=== PATIENT | male | born 1950 | race Caucasian/White ===

== ENCOUNTER 2020-04-27 14:30 | Observation (INO) | payer MEDICARE, OTHER ==
--- NOTE | 2020-04-27 15:17 | PDOC.HHP ---
Hospitalist HPI - History of Present Illness Left-sided weakness History of Present Illness: 70-year-old male who has past medical history of hypertension, benign enlargement of prostate, dementia, tobacco abuse disorder, who presented to [facility] emergency room for acute onset of left-sided weakness with numbness on lower and upper extremity. Patient reports that when he got out of bed around 930 this morning the symptoms started. Patient reports that he was normal when he went to bed. Patient was also experiencing some left upper extremity weakness. He did not have any headache or any speech changes. He denies any fall. At [facility] emergency room patient was evaluated with a CT brain which was negative for any acute process. CT angiography was also negative for any blood clot. Routine blood test showed macrocytic anemia and hyponatremia. Subsequently patient was transferred to our hospital for further evaluation. ED Course: Patient was given aspirin at [facility] emergency room. Hospitalist ROS - Review of Systems Constitutional: denies: fever, chills, sweats, weakness, malaise, other Eyes: denies: pain, vision change, conjunctivae inflammation, eyelid inflammation, redness, other ENT: denies: ear pain, ear discharge, nose pain, nose discharge, nose congestion , mouth pain, mouth swelling, throat pain, throat swelling, other Respiratory: denies: cough, dry, shortness of breath, hemoptysis, SOB with excertion, pleuritic pain, sputum, wheezing, other Cardiovascular: denies: chest pain, palpitations, orthopnea, paroxysmal noc. dyspnea, edema, light headedness, other Gastrointestinal: denies: nausea, vomiting, abdominal pain, diarrhea, constipation, melena, hematochezia, other Genitourinary: denies: dysuria, frequency, incontinence, hematuria, retention, other Musculoskeletal: denies: neck pain, shoulder pain, arm pain, back pain, hand pain, leg pain, foot pain, other Skin: denies: rash, lesions, bi, bruising, other Neurological: reports: weakness, numbness. denies: incoordination, change in speech, confusion, seizures, other - Medication Medications: KNOWN ALLERGIES No Known Drug Allergies CURRENT MEDICATIONS sertraline SunApr 27, 2020 13:04 ESPERANZA Gonzalez, Lisa tablet : Strength - 100 mg : ORAL Patient Dose: 1 tab(s) Oral once a day. Vitamin D3 SunApr 27, 2020 13:04 ESPERANZA Gonzalez Kristi tablet : Strength - 2,000 unit : ORAL Patient Dose: 2 tab(s) Oral once a day. aspirin oral SunApr 27, 2020 13:05 ESPERANZA Gonzalez Kristi tablet : Strength - 81 mg : ORAL Patient Dose: 1 tab(s) Oral once a day. donepezil SunApr 27, 2020 13:06 ESPERANZA Gonzalez Kristi tablet : Strength - 5 mg : ORAL Patient Dose: 1 tab(s) Oral once a day. tamsulosin SunApr 27, 2020 13:06 ESPERANZA Gonzalez Kristi capsule : Strength - 0.4 mg : ORAL Patient Dose: 1 tab(s) Oral once a day. folic acid oral SunApr 27, 2020 13:07 ESPERANZA Gonzalez Kristi tablet : Strength - 1 mg : ORAL Patient Dose: 1 tab(s) Oral once a day. memantine SunApr 27, 2020 13:07 ESPERANZA Gonzalez Kristi tablet : Strength - 5 mg : ORAL Patient Dose: 2 tab(s) Oral once a day. amLODIPine SunApr 27, 2020 13:07 ESPERANZA Gonzalez Kristi tablet : Strength - 5 mg : ORAL Patient Dose: 1 tab(s) Oral once a day. lisinopril SunApr 27, 2020 13:08 ESPERANZA Gonzalez Kristi tablet : Strength - 40 mg : ORAL Patient Dose: 1 tab(s) Oral once a day. Hospitalist History - Past Medical History Psych: reports: no pertinent history Other Medical History: Hypertension Benign enlargement of prostate COPD Tobacco abuse disorder History of intracranial hemorrhage in 2016 Dementia - Past Surgical History Other Surgical History: Patient denies any previous surgical history - Family History Other Family History: No strong family history of premature coronary artery disease stroke or cancer - Social History Other Social History: Patient has a history of smoking about 1 pack/day and he also drinks more than 5 beers every day basis he denies any other illicit drug abuse. - Exam General Appearance: NAD, awake alert Eye: PERRL, anicteric sclera ENT: normocephalic atraumatic, no oropharyngeal lesions Neck: supple, symmetric, no JVD, no thyromegaly Heart: RRR, no murmur, no gallops, no rubs, normal peripheral pulses Respiratory: CTAB, no wheezes, no rales, no ronchi Gastrointestinal: soft, non-tender, non-distended, normal bowel sounds Extremities: no cyanosis, no clubbing, no edema Skin: normal turgor, no lesions Neurological: cranial nerve grossly intact, normal sensation to touch, no weakness, no focal deficits Musculoskeletal: normal tone, normal strength Psychiatric: normal affect, normal behavior, A&O x 3 Hospitalist Results - Labs Lab results: Laboratory Tests 04/27/20 04/27/20 04/27/20 11:53 11:53 11:53 WBC 5.2 Hct 33.5 L MCV 110.0 H Plt Count 223 INR Sodium 125 L Chloride 89 L BUN 17 POC Glucose Creatine Kinase 236 H Troponin I Less than 0.010 B-Natriuretic Peptide Salicylates Acetaminophen Plasma Alcohol 04/27/20 04/27/20 04/27/20 11:53 11:53 11:53 WBC Hct MCV Plt Count INR 0.9 Sodium Chloride BUN POC Glucose Creatine Kinase Troponin I B-Natriuretic Peptide 22.8 Salicylates Less than 8.0 L Acetaminophen Less than 6.0 L Plasma Alcohol Less than 10 04/27/20 11:59 WBC Hct MCV Plt Count INR Sodium Chloride BUN POC Glucose 123 H Creatine Kinase Troponin I B-Natriuretic Peptide Salicylates Acetaminophen Plasma Alcohol - EKG Interpretation EK lead EKG interpreted by me at time of study, 12 lead EKG shows normal sinus rhythm, Rate (beats per minute): 80, with no ectopics, Conduction with, left anterior fascicular block, ST, depression, in lead II, in lead III, Upsloping ST elevation in V3 through V5, T waves normal, [place] normal, Other findings include:, Q waves in aVl, Q waves in V2, left atrial enlargement, Clinical impression:, Normal sinus rhythm with left anterior fascicular block, possible septal and lateral infarcts of unclear age, possible left atrial enlargement - Radiology Interpretation CT scan - head Status: image reviewed by me Additional Comment: FINDINGS: There is no evidence of acute intracranial hemorrhage or infarct. Mild diffuse cortical atr ophy. Chronic ischemic small vessel disease is present throughout the periventricular white matter of each cerebral hemisphere. Symmetric areas of decreased density at the floor of each frontal lobe may reflect encephalomalacia f rom old trauma or may be related to chronic ischemic small vessel disease. There is no mass effect or shift of midline structures. Visualized paranasal sinuses remain well-aerated. IMPRESSION : Evidence of chronic ischemic small vessel disease. No acute intracranial abnormalities are demonstrat ed. Other Additional Comment: FINDINGS: There is good contrast opacification of the aortic arch with normal branching of the great vessels. Prominent calcification throughout the arterial structures. Good flow into each carotid and vertebral system. At the right carotid bifurcation, there is prominent calcification. Internal carotid artery is widely patent. Focal area of narrowing at the proximal external carotid artery estimated at 50%. Calcification at the left carotid bifurcation. Internal and external carotid arteries are patent. [place] of [place] is intact with predominant persistent origin of the right posterior cerebral a rtery. Good flow into each cerebral and cerebellar system. No enhancing brain lesion evident. Prominent degenerative changes throughout the cervical spine Tiny nonspecific cystic lesion is partially visualized at the inferior pole of the left thyroid lobe. Emphysematous changes are apparent at the lung apices. IMPRESSION : Prominent atherosclerosis. No acute vascular abnormalities are apparent. 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 daily, PT evaluation, will check lipid profile tomorrow morning and will start Lipitor 40 mg p.o. nightly, will resume his antihypertensive medication Regarding hyponatremia we will check urine osmolarity, serum osmolarity, TSH, random cortisol, urine sodium and creatinine. Most likely it is related with beer portal sam Regarding macrocytic anemia will check folic acid and vitamin B12 level, will start folic acid and vitamin B12 therapy Regarding hypertension we will resume his home medication will use hydralazine and labetalol as needed basis Regarding benign enlargement of prostate will resume Flomax Regarding COPD will use DuoNeb therapy as needed basis Regarding tobacco and alcohol abuse we have provided patient counseling to avoid tobacco and alcohol abuse, will watch for any withdrawal, will provide nicotine patch if needed Regarding anxiety and depression we will continue Zoloft 100 mg p.o. daily Regarding dementia we will continue Aricept and Namenda as per home dosage DVT prophylaxis Lovenox 40 mg subcu daily GI prophylaxis Pepcid 20 mg p.o. twice daily CODE STATUS patient is full code, patient does not have any surrogate decision- maker Disposition planning based on clinical course likely within 24 hours. Plan of care discussed with the patient in detail.
[2020-04-27 15:57] LABS: Thyroid Stimulating Hormone 0.9531 uIU/mL (0.35-4.94)
[2020-04-27 16:13] LABS: Troponin I Less than 0.010 ng/mL (< 0.028)
[2020-04-27] MEDS ORDERED: Nitroglycerin 2% Ointment 1 INCH/1 GM Packet ONE (16:28)
[2020-04-27 18:58] LABS: Troponin I 0.011 ng/mL (< 0.028)
[2020-04-27] MEDS ORDERED: Guaifenesin DM 100-10/5 ML UDCUP PO PRN (21:59)
[2020-04-27] MEDS ORDERED: Senokot S 8.6-50 MG TAB PO PRN (21:59)
[2020-04-27] MEDS ORDERED: Bisacodyl 10 MG SUPP PR PRN (21:59)
[2020-04-27] MEDS ORDERED: Diabetic Tussin 200 MG/10 ML UDCUP PO PRN (21:59)
[2020-04-27] MEDS ORDERED: hydrALAZINE 20 MG/ML VIAL SLOW IVP PRN (21:59)
[2020-04-27] MEDS ORDERED: Labetalol HCl 100 MG/20 ML VIAL SLOW IVP PRN (21:59)
[2020-04-27] MEDS ORDERED: Loratadine 10 MG TAB PO PRN (21:59)
[2020-04-27] MEDS ORDERED: Ondansetron PF 4 MG/2 ML Vial IVP PRN (21:59)
[2020-04-27] MEDS ORDERED: Lorazepam 0.5 MG TAB PO PRN (21:59)
[2020-04-27] MEDS ORDERED: Calcium Carbonate 500 MG ChewTAB PO PRN (21:59)
[2020-04-27] MEDS ORDERED: Ondansetron ODT 4 MG TAB PO PRN (21:59)
[2020-04-27] MEDS ORDERED: Loperamide HCl 2 MG CAP PO PRN (21:59)
[2020-04-27] MEDS ORDERED: HYDROcodone/Acetaminophen 5/325 mg Tablet PO PRN (21:59)
[2020-04-27] MEDS ORDERED: Benzonatate 100 MG CAP PO PRN (21:59)
[2020-04-27] MEDS ORDERED: Sodium Chloride 0.65% Nasal 44 ML BOT EA NARE PRN (21:59)
[2020-04-27] MEDS ORDERED: Donepezil HCl 5 MG TAB PO SCH (22:45)
[2020-04-27] MEDS ORDERED: Atorvastatin Calcium 40 MG TAB PO SCH (22:45)
[2020-04-28] MEDS: Zolpidem Tartrate 5 MG TAB PO PRN ×2 (00:20→21:50)
[2020-04-28 01:56] LABS: Bacteria/HPF None Seen HPF (None Seen); Bilirubin Negative (Negative); Blood, Urine 2+ (Negative); Clarity Clear (Clear); Glucose, Urine (Dipstick) Normal (Negative); Ketone, Urine Negative (Negative); Leukocyte Negative Leu/uL (Negative); Nitrite Negative (Negative); Protein, Urine (Dipstick) Negative (Neg-Trace); RBC/HPF 21-50 HPF (0-3); Specific Gravity, Urine 1.011 (1.002-1.036); Squamous Epithelial None Seen HPF (0-3); Urobilinogen Normal mg/dL (Less than 2); pH, Urine 6.5 (5.0-9.0)
[2020-04-28] MEDS ORDERED: Famotidine 20 MG TAB PO SCH (02:00)
[2020-04-28] MEDS: Acetaminophen 325 MG TAB PO PRN ×3 (03:30→21:50)
[2020-04-28 04:16] VITALS: BMI 17.2
[2020-04-28 05:31] LABS: Anion Gap 10 mmol/L (10-20); BUN (Urea Nitrogen) 14 mg/dL (8.4-25.7); Calc. Creatinine Clearance 73 mL/min (70-130); Calcium 8.8 mg/dL (7.8-10.44); Carbon Dioxide 27 mmol/L (23-31); Chloride 93 mmol/L (98-107); Cholesterol 204 mg/dl (< 200 Desired); Estimated GFR-MDRD Greater than 90; Glucose 88 mg/dL (83-110); HDL Cholesterol 100 mg/dL (>60 Neg Risk); LDL Cholesterol, Calculated 86 mg/dL; Potassium 4.4 mmol/L (3.5-5.1); Sodium 126 mmol/L (136-145); Triglycerides 91 mg/dL (Less than 150)
[2020-04-28 05:45] LABS: #Eosinphils 0.1 thou/uL (0.0-0.7); #Lymphocytes 1.1 thou/uL (1.20-3.40); #Monocytes 0.6 thou/uL (0.11-0.59); #Neutrophils 2.5 thou/uL (1.40-6.50); %Basophils 0.9 % (0.0-1.0); %Eosinophils 3.2 % (0.0-10.0); %Lymphocytes 25.4 % (21.0-51.0); %Monocytes 13.2 % (0.0-10.0); %Neutrophils 57.3 % (42.0-75.0); Mean Corpuscular HGB CONC 33.4 g/dL (32.0-36.0); Mean Corpuscular Hemoglobin 36.1 pg (27.0-31.0); Mean Platelet Volume 6.5 fL (7.4-10.4); Platelet Count 223 thou/uL (130-400); Red Blood Cell (RBC) Count 2.77 mill/uL (4.70-6.10); White Blood Cell (WBC) Count 4.4 thou/uL (4.8-10.8)
[2020-04-28] MEDS: Enoxaparin Sodium 40 MG/0.4 ML SYRINGE SC SCH (08:49)
[2020-04-28] MEDS: Aspirin 325 mg Enteric Coated Tablet PO SCH (08:50)
[2020-04-28] MEDS: Folic Acid 1 MG TAB PO SCH (08:50)
[2020-04-28] MEDS: Famotidine 20 MG TAB PO SCH ×2 (08:50→21:50)
[2020-04-28] MEDS: Cyanocobalamin (Vitamin B-12) 1,000 MCG TAB PO SCH (08:50)
[2020-04-28] MEDS: Tamsulosin HCl 0.4 MG CAP PO SCH (08:50)
[2020-04-28] MEDS: Lisinopril 20 MG TAB PO SCH (08:51)
[2020-04-28] MEDS: Cholecalciferol 1,000 UNITS (25 MCG) TAB PO SCH (08:51)
[2020-04-28] MEDS ORDERED: Nicotine 21 MG PATCH TD SCH (09:00)
[2020-04-28] MEDS ORDERED: Amlodipine 5 MG TAB PO SCH ×2 (09:00→11:30)
[2020-04-28 09:04] LABS: Creatinine, Urine 36.62 mg/dL (63-166)
--- NOTE | 2020-04-28 12:01 | MRI ---
MRI BRAIN WITHOUT CONTRSAT: INDICATION: TIA. COMPARISON: Correlation is made to the CT head of 04/27/2020. FINDINGS: Encephalomalacia/volume loss involving bilateral inferior frontal lobes. Severe chronic ischemic whi te matter changes in both cerebral hemispheres. Ventricles have normal size and position. No evidence of restricted diffusion. No evidence of acute infarct or mass. The intracranial internal carotid arteries and proximal cerebral arteries show expected flow voids. Paranasal sinuses are clear. Mucosal edema in the left mastoid air cells. IMPRESSION: 1. There is encephalomalacia/volume loss involving the inferior frontal lobes and both anterior temp oral lobes with surrounding gliosis. Severe chronic ischemic white matter changes. 2. No evidence of acute infarct identified. POS: AGW
--- NOTE | 2020-04-28 12:02 | CON ---
DATE OF CONSULTATION: 04/28/2020 SERVICE: Nephrology. REASON FOR CONSULTATION: Hyponatremia. REQUESTING PHYSICIAN: Anival oCon MD CHIEF COMPLAINT: Left-sided weakness. HISTORY OF PRESENT ILLNESS: A 70-year-old male with known history of hypertension, COPD, BPH, chronic tobacco abuse as well as chronic alcohol use, who was admitted due to acute onset of left-sided upper and lower limb weakness and numbness. The patient reportedly woke up with these symptoms yesterday morning being April 27, 2020. There was no associated headache, dysphagia, dysarthria, fever, cough, chills. The patient also denied fall. He was taken to local ER, from where he was transferred over here. Evaluation with CT scan of the brain as well as CT angio was negative. He also was found to have hyponatremia with initial sodium of 125, hence Nephrology consult. The patient admitted to knowing about hyponatremia, which has been ongoing for some time. He reportedly adds a lot of salt to his food. He also admitted to chronic alcohol use, drinking about 4 beers every day. He also admitted to chronic smoking as well as COPD. Review of medications also revealed the patient is on sertraline for depression and anxiety. He denied edema or worsening shortness of breath. He also denied gait instability. Currently, weakness of the left side has resolved and the patient seems back to baseline. PAST MEDICAL HISTORY: 1. Hypertension. 2. BPH. 3. COPD. 4. Tobacco abuse disorder. 5. Prior history of intracranial hemorrhage in 2016. 6. Dementia. 7. Depression with anxiety. PAST SURGICAL HISTORY: None. FAMILY HISTORY: Reviewed, but nonsignificant. No strong family history of premature coronary artery disease or stroke or cancer. SOCIAL HISTORY: The patient lives with family. Smokes about a pack a day. He also drinks about 5 beers every day. Denied recreational drug use. ALLERGIES: NO KNOWN DRUG ALLERGIES REPORTED. MEDICATIONS: Prior to hospital medications: 1. Sertraline 100 mg p.o. daily. 2. Vitamin D 2000 units daily. 3. Aspirin 81 mg p.o. daily. 4. Donepezil 5 mg p.o. daily. 5. Tamsulosin 0.4 mg daily. 6. Folic acid 1 mg p.o. daily. 7. Memantine 10 mg p.o. daily. 8. Amlodipine 5 mg p.o. daily. 9. Lisinopril 40 mg p.o. daily. REVIEW OF SYSTEMS: 12-point review of systems performed was negative other than pertinent positives and negatives included in the history of present illness. PHYSICAL EXAMINATION: VITAL SIGNS: Temperature 97.9, pulse 80, respiratory rate 17, SpO2 of 96% on room air, and blood pressure is 164/71. GENERAL: Slim/cachectic elderly male, in no obvious distress. Afebrile. Anicteric. Acyanotic. HEENT: Normocephalic, atraumatic. Oral mucosa is moist. NECK: Supple with no JVD. CARDIOVASCULAR: Regular rhythm and rate with normal heart sounds one and two. RESPIRATORY: Fair air entry bilaterally with coarse transmitted breath sounds. No obvious rhonchi were appreciated. No respiratory distress also was appreciated. GI: Flat, soft, nontender, nondistended with normal bowel sounds. EXTREMITIES: Grossly normal looking, atraumatic with no edema or erythema. Muscle wasting noted. CHIP [employer]IN CONVEYOR TENDER: Conscious, alert, oriented x3 with appropriate mental status. Cranial nerves 2 through 12 are grossly intact. The patient moves all extremities. The patient is ambulant. DIAGNOSTIC DATA: CBC showed WBC count of 4.4, hemoglobin of 10.0, platelets of 223, MCV of 108. Chemistry today showed sodium 126, potassium 4.4, chloride 93, CO2 of 27, BUN 14, creatinine 0.75, glucose 88, and calcium 8.8. However on presentation yesterday, April 27, sodium was 125. Serum osmolality on April 27, 2020, was 269 while urine osmolality was 335. Urinalysis performed earlier today showed light yellow clear urine with pH of 6.5, specific gravity of 1.011, negative protein, normal glucose, negative ketones, 2+ blood, negative nitrite, bilirubin, leukocyte esterase. Microscopy showed 21 to 50 rbc's and 4 to [address] scan of the brain showed no acute pathology. MRI of the brain report is pending. ASSESSMENT: 1. Hyponatremia: Multifactorial from poor solute intake, beer potomania as well as syndrome of inappropriate secretion of antidiuretic hormone. Elevated urine osmolality in the face of hypoosmolality of the plasma is consistent with syndrome of inappropriate secretion of antidiuretic hormone. 2. Syndrome of inappropriate secretion of antidiuretic hormone: Etiology seems to be multifactorial from chronic obstructive pulmonary disease and medication. The patient reported chronicity for which he has been adding excess salt to his food to improve his salt level. 3. Chronic alcohol abuse with beer potomania. 4. Hypertension: Control is suboptimal. 5. Hematuria: Etiology is unclear. Renal function is preserved. There is no history of trauma. There is also no associated proteinuria. Differentials include IgA nephropathy. PLAN: 1. Agree with fluid restriction of 1500. 2. We will increase solute intake as well as protein intake. We will start Ensure Enlive on this patient. 3. We will also start salt tablet one t.i.d. 4. We will also increase amlodipine to 10 mg p.o. daily to get adequate BP control. 5. Further treatment to follow depending on hospital course. 6. If medically desirable to be discharged today, the patient can be discharged from Nephrology point of view on salt tablet. However, close followup in 1 week is recommended with repeat BMP and urinalysis to assess hematuria and sodium level. Care plan was discussed with the patient, who verbalized understanding. Many thanks for involving us in the care of this patient. We will follow along with you. Job ID: [id number]
--- NOTE | 2020-04-28 12:16 | CON ---
NEUROLOGY CONSULTATION DATE OF CONSULTATION: 04/28/2020 REASON FOR CONSULTATION: Left-sided weakness. HISTORY OF PRESENT ILLNESS: Mr. Keating is a 70-year-old male with medical history significant for hypertension, BPH, dementia, and nicotine abuse, presented from [facility] with acute onset left-sided weakness with numbness and tingling of the upper and lower extremities. The patient reported that he got out of bed around 9:30 on 04/27/2020. At that time, the symptoms started. Per patient, he went to bed. The patient also experienced left upper extremity numbness. The patient denied difficulty with swallowing, speech, nausea, vomiting, headache, chest pain, abdominal pain, vertigo, loss of vision, or loss of consciousness. In the [facility], the head CT was done, which was negative for acute process. CT angiogram was also negative. During the emergency room, his symptoms improved, so he was given aspirin and transferred to [facility] for higher level of care. REVIEW OF SYSTEMS: All 10 systems were reviewed and were negative except the pertinent positive and negative mentioned in the HPI. ALLERGIES: NO KNOWN DRUG ALLERGIES. HOME MEDICATIONS: 1. Sertraline 100 mg once daily. 2. Vitamin D3, 2000 units once daily. 3. Aspirin 81 mg daily. 4. Donepezil 5 mg once daily. 5. Tamsulosin 0.5 mg once a day. 6. Folic acid 1 mg once daily. 7. Memantine 5 mg 2 tablets once a day. 8. Amlodipine 5 mg one tablet once a day. 9. Lisinopril 40 mg once daily. PAST MEDICAL HISTORY: Hypertension, BPH, COPD, nicotine abuse, history of intracranial hemorrhage in 2016, and dementia. PAST SURGICAL HISTORY: None. FAMILY HISTORY: No family history of coronary artery disease or cancer. SOCIAL HISTORY: The patient has history of smoking one pack per day, and he also drinks 5 beers every day. Denies any illegal drug use. - Physical Exam General Appearance: NAD, awake alert Eye: PERRL, anicteric sclera ENT: normocephalic atraumatic, no oropharyngeal lesions Neck: supple, symmetric, no JVD, no thyromegaly Heart: RRR, no murmur, no gallops, no rubs, normal peripheral pulses Respiratory: CTAB, no wheezes, no rales, no ronchi Gastrointestinal: soft, non-tender, non-distended, normal bowel sounds Extremities: no cyanosis, no clubbing, no edema Skin: normal turgor, no lesions Neurological:Mental status, the patient is alert and oriented to person, place, and time. Motor, muscle tone and bulk are normal. Strength, muscle tone and bulk are normal. Moving all 4 extremities equally and symmetrically. Sensory intact. Cranial nerves 2 through 12 intact. Cerebellar, finger-nose testing intact. Gait deferred due to the patient's safety reason. Lab results: Laboratory Tests 04/27/20 04/27/20 04/27/20 11:53 11:53 11:53 WBC 5.2 Hct 33.5 L MCV 110.0 H Plt Count 223 INR Sodium 125 L Chloride 89 L BUN 17 POC Glucose Creatine Kinase 236 H Troponin I Less than 0.010 B-Natriuretic Peptide Salicylates Acetaminophen Plasma Alcohol 04/27/20 04/27/20 04/27/20 11:53 11:53 11:53 WBC Hct MCV Plt Count INR 0.9 Sodium Chloride BUN POC Glucose Creatine Kinase Troponin I B-Natriuretic Peptide 22.8 Salicylates Less than 8.0 L Acetaminophen Less than 6.0 L Plasma Alcohol Less than 10 04/27/20 11:59 WBC Hct MCV Plt Count INR Sodium Chloride BUN POC Glucose 123 H Creatine Kinase Troponin I B-Natriuretic Peptide Salicylates Acetaminophen Plasma Alcohol NEUROLOGIC: DATA REVIEWED: I reviewed the labs and the EKG which showed normal sinus rhythm. Head CT was negative for acute intracranial pathology. CT angiogram was unremarkable. ASSESSMENT AND PLAN: Mr. Evgeny Keating is a 70-year-old male who was transferred from [facility] because of an episode of left upper extremity numbness, tingling, and weakness, most likely stroke . Recommend MRI of the brain to rule out acute intracranial process. Recommend 2D echo to evaluate for left ventricular ejection fraction. Telemetry. Neuro checks every 4 hours. Carotid Dopplers to evaluate for hemodynamically significant stenosis. Check hemoglobin A1c, TSH, fasting lipid panel. Increase asa to 324 mg daily and consider high intensity statin for secondary stroke prevention. Permissive control of blood pressure at this time. Strict control of blood glucose. Continue home medications. PT/OT/speech. Continue medical management per primary team. DVT prophylaxis. We will continue to follow. Thank you for the consult. Job ID: [id number] KARAN
[2020-04-28 13:15] LABS: SARS-CoV-2 MS2 Positive; SARS-CoV-2 N Gene Negative; SARS-CoV-2 S Gene Negative; SARS-CoV-2 by NAA Not Detected (NotDetected); SARS-CoV-2 orf1ab Negative
[2020-04-28] MEDS: Sodium Chloride 1 GM TAB PO SCH ×2 (14:53→21:50)
[2020-04-28] MEDS ORDERED: PROVENTIL INHALER 6.7 G (200 INHALATIONS) INH PRN (17:12)
--- NOTE | 2020-04-28 18:56 | PDOC.HOSPP ---
- Subjective Encounter Date: 04/28/20 Encounter Time: 16:00 Subjective: Patient seen and examined for strokelike symptoms. Denies any new focal deficit. No chest pain, palpitations, syncope or shortness of breath reported. - Objective Vital Signs & Weight: Vital Signs (12 hours) Temp Pulse Pulse Pulse Resp BP BP 04/28/20 15:32 97.6 F 83 20 04/28/20 15:02 80 193/78 H 04/28/20 14:57 80 193/78 H 04/28/20 13:30 82 101 H 197/82 H 04/28/20 11:58 79 189/80 H 04/28/20 11:29 97.7 F 77 18 04/28/20 08:51 80 04/28/20 07:40 97.9 F 80 17 BP BP Pulse Ox 04/28/20 15:32 139/63 96 04/28/20 15:02 04/28/20 14:57 04/28/20 13:30 216/85 H 04/28/20 11:58 04/28/20 11:29 189/80 H 98 04/28/20 08:51 04/28/20 07:40 164/71 H 96 Weight Weight 127 lb 1.6 oz I&O: 04/27/20 04/28/20 04/29/20 06:59 06:59 06:59 Intake Total 300 Balance 300 Result Diagrams: 04/28/20 04:52 04/28/20 04:52 Additional Labs: Laboratory Tests 04/27/20 04/27/20 04/27/20 01:40 14:53 14:53 Serum Osmolality 269 L Cholesterol LDL Cholesterol, Calc Vitamin B12 705 TSH 3rd Generation 0.9531 Urine Osmolality 335 04/28/20 04:52 Serum Osmolality Cholesterol 204 H LDL Cholesterol, Calc 86 Vitamin B12 TSH 3rd Generation Urine Osmolality Radiology Reviewed by me: Yes (MRI brain - no acute CVA) EKG Reviewed by me: Yes (Tele ) Hospitalist ROS - Review of Systems Respiratory: denies: cough, dry, shortness of breath, hemoptysis, SOB with excertion, pleuritic pain, sputum, wheezing, other Cardiovascular: denies: chest pain, palpitations, orthopnea, paroxysmal noc. dyspnea, edema, light headedness, other Gastrointestinal: denies: nausea, vomiting, abdominal pain, diarrhea, constipation, melena, hematochezia, other All other systems reviewed; all pertinent +/- noted in HPI/Subj - Medication Medications: Active Medications Generic Name Dose Route Start Last Admin Trade Name Freq PRN Reason Stop Dose Admin Acetaminophen 650 mg 04/27/20 21:59 04/28/20 12:01 Tylenol PO 650 mg Q4H PRN Administration Headache/Fever/Mild Pain (1-3) Albuterol/Ipratropium 3 ml 04/27/20 21:59 04/28/20 17:37 Duoneb NEB 3 ml [id number] PRN Administration SOB &/or Wheezing Aspirin 325 mg 04/28/20 09:00 04/28/20 08:50 Ecotrin PO 325 mg DAILY RASHMI Administration Cholecalciferol 2,000 units 04/28/20 09:00 04/28/20 08:51 Vitamin D3 PO 2,000 units DAILY RASHMI Administration Cyanocobalamin 1,000 mcg 04/28/20 09:00 04/28/20 08:50 Vitamin B-12 PO 1,000 mcg DAILY RASHMI Administration Enoxaparin Sodium 40 mg 04/28/20 09:00 04/28/20 08:49 Lovenox SC 40 mg 0900 RASHMI Administration Famotidine 20 mg 04/28/20 09:00 04/28/20 08:50 Pepcid PO 20 mg BID RASHMI Administration Folic Acid 1 mg 04/28/20 09:00 04/28/20 08:50 Folvite PO 1 mg DAILY RASHMI Administration Hydralazine HCl 10 mg 04/27/20 21:59 04/28/20 15:02 Apresoline SLOW IVP 10 mg Q4H PRN Administration SBP GREATER THAN 160 Lisinopril 40 mg 04/28/20 09:00 04/28/20 08:51 Zestril PO 40 mg DAILY RASHMI Administration Memantine 5 mg 04/28/20 09:00 04/28/20 08:51 Namenda PO 5 mg BID RASHMI Administration Nicotine 21 mg 04/28/20 09:00 04/28/20 10:34 Nicoderm Patch TD 21 mg DAILY RASHMI Administration Sertraline HCl 100 mg 04/28/20 09:00 04/28/20 08:50 Zoloft PO 100 mg DAILY RASHMI Administration Sodium Chloride 1 gm 04/28/20 15:00 04/28/20 14:53 Sodium Chloride PO 1 gm TID RASHMI Administration Tamsulosin HCl 0.4 mg 04/28/20 09:00 04/28/20 08:50 Flomax PO 0.4 mg DAILY RASHMI Administration Zolpidem Tartrate 5 mg 04/27/20 21:59 04/28/20 00:20 Ambien PO 5 mg HSPRN PRN Administration Insomnia - Exam General Appearance: NAD Neck: supple, no JVD Heart: RRR, no gallops, no rubs, normal peripheral pulses Respiratory: no wheezes, no rales, no ronchi, normal chest expansion Gastrointestinal: non-tender, normal bowel sounds, no guarding, no rigidity Extremities: no cyanosis, no clubbing Neurological: no new deficit Psychiatric: normal affect, A&O x 3 Hosp A/P - Plan DVT proph w/SCDs Transient ischemic attack 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 Amlodipine dose increased due to uncontrolled blood pressure. Continue statins. Patient was counseled on alcohol and tobacco cessation. Continue lisinopril and other medications as above. Patient has been started on sodium chloride per nephrology. Recheck sodium in a.m. Neurology input appreciated. Await echocardiogram. Cont MVM. Monitor for alcohol withdrawal. DC home after stroke work-up. Patient understands above plan of care.
[2020-04-28] MEDS ORDERED: Lorazepam 0.5 MG TAB PO PRN (19:33)
[2020-04-28] MEDS ORDERED: Thiamine 100 MG TAB PO SCH (21:00)
[2020-04-28] MEDS ORDERED: Atorvastatin Calcium 40 MG TAB PO SCH (21:00)
[2020-04-28] MEDS ORDERED: Donepezil HCl 5 MG TAB PO SCH (21:00)
[2020-04-28] MEDS ORDERED: Melatonin 3 MG TAB PO PRN (21:06)
[2020-04-29] MEDS: Acetaminophen 325 MG TAB PO PRN (02:44)
[2020-04-29 05:02] LABS: Albumin 3.6 g/dL (3.4-4.8); Anion Gap 8 mmol/L (10-20); BUN (Urea Nitrogen) 9 mg/dL (8.4-25.7); Calc. Creatinine Clearance 73 mL/min (70-130); Calcium 9.1 mg/dL (7.8-10.44); Carbon Dioxide 29 mmol/L (23-31); Chloride 89 mmol/L (98-107); Estimated GFR-MDRD Greater than 90; Glucose 102 mg/dL (83-110); Phosphorus 2.9 mg/dL (2.3-4.7); Sodium 122 mmol/L (136-145)
[2020-04-29] MEDS ORDERED: Amlodipine 5 MG TAB PO SCH (09:00)
[2020-04-29] MEDS: Famotidine 20 MG TAB PO SCH (09:04)
[2020-04-29] MEDS: Folic Acid 1 MG TAB PO SCH (09:05)
[2020-04-29] MEDS: Cholecalciferol 1,000 UNITS (25 MCG) TAB PO SCH (09:05)
[2020-04-29] MEDS: Aspirin 325 mg Enteric Coated Tablet PO SCH (09:05)
[2020-04-29] MEDS: Cyanocobalamin (Vitamin B-12) 1,000 MCG TAB PO SCH (09:05)
[2020-04-29] MEDS: Enoxaparin Sodium 40 MG/0.4 ML SYRINGE SC SCH (09:06)
[2020-04-29] MEDS: Lisinopril 20 MG TAB PO SCH (09:06)
[2020-04-29] MEDS: Sodium Chloride 1 GM TAB PO SCH ×2 (09:07→14:01)
[2020-04-29] MEDS: Tamsulosin HCl 0.4 MG CAP PO SCH (09:09)
--- NOTE | 2020-04-29 11:31 | PDOC.HOSPP ---
- Subjective Encounter Date: 04/29/20 Subjective: NEUROLOGY PROGRESS NOTE Patient awake and follows commands.. - Objective Vital Signs & Weight: Vital Signs (12 hours) Temp Pulse Resp BP BP BP Pulse Ox 04/29/20 10:01 80 14 04/29/20 09:06 155/69 H 04/29/20 09:04 80 155/69 H 04/29/20 08:00 98 F 80 16 155/69 H 95 04/29/20 04:00 97.8 F 84 15 164/72 H 92 L 04/29/20 02:53 16 04/29/20 00:00 98.2 F 87 16 159/68 H 95 Weight Weight 127 lb 1.6 oz I&O: 04/28/20 04/29/20 04/30/20 06:59 06:59 06:59 Intake Total 300 460 Balance 300 460 Result Diagrams: 04/28/20 04:52 04/29/20 04:22 Radiology Reviewed by me: Yes EKG Reviewed by me: Yes Hospitalist ROS - Review of Systems Constitutional: denies: fever, chills, sweats, weakness, malaise, other Eyes: denies: pain, vision change, conjunctivae inflammation, eyelid inflammation, redness, other ENT: denies: ear pain, ear discharge, nose pain, nose discharge, nose congestion , mouth pain, mouth swelling, throat pain, throat swelling, other Cardiovascular: denies: chest pain, palpitations, orthopnea, paroxysmal noc. dyspnea, edema, light headedness, other Gastrointestinal: denies: nausea, vomiting, abdominal pain, diarrhea, constipation, melena, hematochezia, other Genitourinary: denies: dysuria, frequency, incontinence, hematuria, retention, other Musculoskeletal: denies: neck pain, shoulder pain, arm pain, back pain, hand pain, leg pain, foot pain, other Skin: denies: rash, lesions, bi, bruising, other - Medication Medications: Active Medications Generic Name Dose Route Start Last Admin Trade Name Freq PRN Reason Stop Dose Admin Acetaminophen 650 mg 04/27/20 21:59 04/29/20 02:44 Tylenol PO 650 mg Q4H PRN Administration Headache/Fever/Mild Pain (1-3) Albuterol/Ipratropium 3 ml 04/27/20 21:59 04/29/20 10:01 Duoneb NEB 3 ml [id number] PRN Administration SOB &/or Wheezing Amlodipine Besylate 10 mg 04/29/20 09:00 04/29/20 09:04 Norvasc PO 10 mg DAILY RASHMI Administration Aspirin 325 mg 04/28/20 09:00 04/29/20 09:05 Ecotrin PO 325 mg DAILY RASHMI Administration Atorvastatin Calcium 40 mg 04/28/20 21:00 04/28/20 21:50 Lipitor PO 40 mg HS RASHMI Administration Cholecalciferol 2,000 units 04/28/20 09:00 04/29/20 09:05 Vitamin D3 PO 2,000 units DAILY RASHMI Administration Cyanocobalamin 1,000 mcg 04/28/20 09:00 04/29/20 09:05 Vitamin B-12 PO 1,000 mcg DAILY RASHMI Administration Donepezil HCl 5 mg 04/28/20 21:00 04/28/20 21:50 Aricept PO 5 mg HS RASHMI Administration Enoxaparin Sodium 40 mg 04/28/20 09:00 04/29/20 09:06 Lovenox SC 40 mg 0900 RASHMI Administration Famotidine 20 mg 04/28/20 09:00 04/29/20 09:04 Pepcid PO 20 mg BID RASHMI Administration Folic Acid 1 mg 04/28/20 09:00 04/29/20 09:05 Folvite PO 1 mg DAILY RASHMI Administration Hydralazine HCl 10 mg 04/27/20 21:59 04/28/20 15:02 Apresoline SLOW IVP 10 mg Q4H PRN Administration SBP GREATER THAN 160 Lisinopril 40 mg 04/28/20 09:00 04/29/20 09:06 Zestril PO 40 mg DAILY RASHMI Administration Memantine 5 mg 04/28/20 09:00 04/29/20 09:05 Namenda PO 5 mg BID RASHMI Administration Sertraline HCl 100 mg 04/28/20 09:00 04/29/20 09:06 Zoloft PO 100 mg DAILY RASHMI Administration Sodium Chloride 1 gm 04/28/20 15:00 04/29/20 09:07 Sodium Chloride PO 1 gm TID RASHMI Administration Tamsulosin HCl 0.4 mg 04/28/20 09:00 04/29/20 09:09 Flomax PO 0.4 mg DAILY RASHMI Administration Thiamine HCl 100 mg 04/28/20 21:00 04/28/20 21:50 Thiamine PO 100 mg HS RASHMI Administration Zolpidem Tartrate 5 mg 04/27/20 21:59 04/28/20 21:50 Ambien PO 5 mg HSPRN PRN Administration Insomnia - Exam General Appearance: awake alert Eye: PERRL ENT: normocephalic atraumatic Neck: supple Heart: RRR Respiratory: CTAB Gastrointestinal: soft Hosp A/P (1) TIA (transient ischemic attack) Code(s): G45.9 - TRANSIENT CEREBRAL ISCHEMIC ATTACK, UNSPECIFIED Status: Acute (2) Hypertension Code(s): I10 - ESSENTIAL (PRIMARY) HYPERTENSION Status: Acute - Plan PT/OT, speech therapy 70 year old with left sided weakness which is now resolved. Transient ischemic attack. MRI brain reviewed and was negative for acute process. Continue aspirin and statin for secondary stroke prevention. Continue telemetry 2D Echo unremarkable Continue home medications Strict control of BP and BG. PT/OT/Speech. Continue medical management per primary team.
--- NOTE | 2020-04-29 12:13 | PRG ---
DATE OF SERVICE: 04/29/2020 SERVICE: Nephrology. SUBJECTIVE: A 70-year-old male, seen in followup for hyponatremia. The patient was admitted with acute hemiparesis, which has resolved. Reports no new complaint and really wants to go home today. OBJECTIVE: VITAL SIGNS: Temperature 98.0, pulse 80, respiratory rate 16, SpO2 of 95% on room air, blood pressure is 155/69. GENERAL: Comfortable male patient, in no distress. HEENT: Normocephalic, atraumatic. Oral mucosa is moist. CARDIOVASCULAR: Regular rhythm and rate with normal heart sounds one and two. RESPIRATORY: Fair air entry bilateral with some transmitted breath sounds. No obvious crackle or use of accessory muscles. GI: Full, soft, nontender, nondistended with normal bowel sounds. EXTREMITIES: Grossly normal looking atraumatic with no edema or erythema. [employer]: Conscious, alert, and oriented x3 with appropriate mental status. Cranial nerves 2 through 12 are grossly intact. The patient is ambulant. DIAGNOSTIC DATA: Chemistry today showed sodium 122, potassium 4.0, chloride 89, CO2 of 29, BUN 9, creatinine 0.75, glucose 102, calcium 9.1, phosphorus 2.9, albumin 3.6. Of note, sodium went down from 126 yesterday to 122. ASSESSMENT: 1. Hyponatremia: Due to syndrome of inappropriate antidiuretic hormone with possible contribution from poor solute intake and beer potomania. The patient reportedly took in about 3 L of free water yesterday. Acute worsening is due to excessive free water intake. 2. Hypertension: Control is still suboptimal. 3. Transient ischemic attack: Resolved. PLAN: 1. Need for fluid restriction reiterated with the patient and nursing staff. 2. We will continue salt tablet. 3. We will recheck BMP this afternoon. 4. We will consider adding Lasix 20 mg daily for volume management as well as help with hyponatremia and hypertension. 5. We will recheck BMP this afternoon and if sodium is trending up, the patient can be discharged home on free water restriction and close followup in 1 week as he is very desirous of going home today. Job ID: [id number]
[2020-04-29 15:35] LABS: Anion Gap 13 mmol/L (10-20); BUN (Urea Nitrogen) 12 mg/dL (8.4-25.7); Calc. Creatinine Clearance 65 mL/min (70-130); Calcium 9.1 mg/dL (7.8-10.44); Carbon Dioxide 26 mmol/L (23-31); Chloride 91 mmol/L (98-107); Estimated GFR-MDRD 90; Glucose 126 mg/dL (83-110); Potassium 4.5 mmol/L (3.5-5.1); Sodium 125 mmol/L (136-145)
[2020-04-29 16:01] VITALS: BP 127/58; TEMP 98.6
--- NOTE | 2020-04-29 16:30 | DIS ---
DATE OF ADMISSION: 04/27/2020 DATE OF DISCHARGE: 04/29/2020 DISCHARGE DISPOSITION: Home. FOLLOWUP: 1. Follow up with primary care physician in 1 week. 2. Follow up with Neurology, Dr. Sen in 2 weeks. 3. Follow up with Nephrology Dr. Parisi next at 11 a.m. 4. Basic metabolic profile after 1 week is recommended, primary care physician advised to follow. The patient was evaluated on the day of discharge. Denies any new complaints. No new focal deficit reported. DIAGNOSTIC TESTS: Sodium at discharge was 125, this morning was 122. Fasting lipid profile showed cholesterol 204, LDL 86, HDL 100, triglyceride 91. Troponin was negative. Serum osmolality 269. Urine osmolality 335. COVID-19 was negative. MRI of the brain was negative for acute CVA. It showed encephalomalacia/volume loss involving the inferior frontal lobe and both anterior temporal lobes with surrounding gliosis. He also had severe chronic ischemic white matter changes. Echocardiogram showed ejection fraction of around 55% without mitral stenosis or regurgitation. BRIEF HOSPITAL COURSE: The patient is a 70-year-old male with hypertension, tobacco dependence, and alcoholism, presented to the hospital with left-sided weakness. He was admitted to the hospital with a diagnosis of TIA. He underwent stroke workup as discussed above. The patient was evaluated by Neurology. He was monitored closely in the stroke unit. Neurology recommended increasing aspirin to 325 mg daily from 81 mg daily. Statins were also added due to abnormal LFTs. Lifestyle modification was emphasized. The patient was also found to have hyponatremia with sodium of 125 on admission. The patient was evaluated by Nephrology. He underwent workup as discussed above. 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 Please note, the patient drinks up to 3 to 4 L of free water every day. Fluid restriction was emphasized. Nephrology will follow up with the patient next week. He has been started on sodium chloride tablet. He was advised to continue fluid restriction of 1500 mg daily. He appears stable for discharge. FINAL DIAGNOSES: 1. Transient ischemic attack. 2. Hyponatremia secondary to syndrome of inappropriate antidiuretic hormone secretion. 3. Hypertension, uncontrolled. Amlodipine dose was increased. 4. Tobacco dependence. The patient was counseled. 5. Chronic alcohol use. The patient was counseled. 6. Anxiety. 7. Dementia. 8. Benign prostatic hypertrophy. 9. Chronic obstructive pulmonary disease. 10. Chronic macrocytic anemia probably due to alcoholism. His vitamin B12 and folic acid were normal. The patient understands the above plan of care. Job ID: [id number]
== END 2020-04-29 17:00 | disposition home or self-care (01) ==
LOC: ERS 14:30 → ERHOLD 15:50 → 2SE 21:49
PROVIDERS: ADMIT Internal Medicine; ATTEND Internal Medicine
DX: G45.9 Transient cerebral ischemic attack, unspecified (principal); E22.2 Syndrome of inappropriate secretion of antidiuretic hormone; I10 Essential (primary) hypertension; F17.210 Nicotine dependence, cigarettes, uncomplicated; F10.10 Alcohol abuse, uncomplicated; N40.0 Benign prostatic hyperplasia without lower urinary tract symptoms; J44.9 Chronic obstructive pulmonary disease, unspecified; D53.9 Nutritional anemia, unspecified; F03.90 Unspecified dementia, unspecified severity, without behavioral disturbance, psychotic disturbance, mood disturbance, and anxiety; F41.9 Anxiety disorder, unspecified; F32.9 Major depressive disorder, single episode, unspecified; Z79.82 Long term (current) use of aspirin; Z79.899 Other long term (current) drug therapy; Z03.818 Encounter for observation for suspected exposure to other biological agents ruled out
CPT/HCPCS: 70551; 80048 ×2; 80061; 80069; 81001; 82533; 82570; 82607; 82746; 83930; 83935; 84300; 84443; 84484; 85025; 93306; 94640 ×2; 96374; 97139 ×3; 99285; U0003; 36415; 87635; 96372; 96375; G0378; J0360; J1650; J7620